=== PATIENT | male | born 1985 | race American Indian/Alaskan Native ===

== ENCOUNTER 2019-02-03 16:26 | Emergency (ER) | payer SELFPAY ==
[2019-02-03 16:45] VITALS: BP 127/77
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
[2019-02-03] MEDS ORDERED: IBUPROFEN 800 MG TAB PO ONE (17:59)
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
== END 2019-02-03 20:12 | disposition home or self-care (01) ==
LOC: ED 16:26
DX: S13.4XXA Sprain of ligaments of cervical spine, initial encounter (principal); F17.200 Nicotine dependence, unspecified, uncomplicated; V49.49XA Driver injured in collision with other motor vehicles in traffic accident, initial encounter; Y93.89 Activity, other specified; Y92.410 Unspecified street and highway as the place of occurrence of the external cause; Y99.8 Other external cause status
CPT/HCPCS: 72040